=== PATIENT | male | born 1985 | race Caucasian/White ===

== ENCOUNTER 2023-12-07 16:33 | Inpatient (IN) ==
--- NOTE | 2023-12-07 17:15 | ED Triage Note ---
Date of Service December 07, 2023 Provider in Triage Author: Kevin Aguedlo History of Present Illness This patient was briefly evaluated while in triage. An abbreviated physical exam was performed. This patient is a 38-year-old Male who presents to the ED for evaluation of shortness of breath. The patient was recently on a hike, and found a tick on his left inner thigh. Since that time, the patient has had sensation of being dehydrated, and has had nausea. Patient denies any chest pain. Physical Exam CONSTITUTIONAL: Healthy and well nourished. HEENT: No scleral icterus or conjunctival injection. RESPIRATORY: Clear to auscultation bilaterally with no wheezing, crackles, rhonchi or stridor. CARDIOVASCULAR: Regular rate and rhythm with no murmurs, rubs or gallops. INTEGUMENTARY: Patient has a tick bite noted to the left medial thigh. HEMATOLOGIC: No ecchymosis or petechiae. PSYCHIATRIC: Positive affect. NEUROLOGIC: No focal neurologic deficits noted. Initial orders for labs and / or imaging were placed and patient was placed in the waiting area until a bed is available. Please see further documentation for the full ED course.
[2023-12-07] MEDS: SODIUM CHLORIDE 0.9% 1,000 ML IV ONE ×2 (17:49→19:25)
--- NOTE | 2023-12-07 17:53 | XRay Report ---
XR chest 1V portable CLINICAL HISTORY: Dyspnea. COMPARISON STUDY: No previous studies for comparison. FINDINGS: Lung volumes are normal. Lungs are clear. There is no pneumothorax or pleural effusion. Car diac size is normal. Mediastinal contours are normal. There is no evidence for pulmonary edema. IMPRESSION: No acute cardiopulmonary findings. ACT 112: Negative or not required by law. Electronically signed by: Jonathan Smith M.D. 12/07/2023 5:51 PM
[2023-12-07 18:17] LABS: Hematocrit (blood only) 53.9 % (42.0-52.0); Hemoglobin 19.2 g/dl (14.0-18.0); Mean Corpuscular Hemoglobin 29.4 pg (25.0-34.0); Mean Corpuscular Hgb Conc 35.6 g/dL (32.0-36.0); Mean Corpuscular Volume 82.5 fL (80.0-100.0); Mean Platelet Volume 9.5 fL (9.4-12.4); Platelet Count 371 K/uL (130-400); RDW Coefficient of Variation 13.5 % (11.5-14.5); RDW Standard Deviation 38.5 fL (36.4-46.3); Red Blood Count 6.53 M/uL (4.70-6.10); White Blood Count 13.83 K/ul (4.8-10.8)
[2023-12-07 18:22] LABS: Albumin Globulin Ratio 1.4 (0.9-2); Albumin Level 5.6 gm/dl (3.4-5.0); BUN Creatinine Ratio 29.4 (10-20); Bilirubin,Total 1.9 mg/dl (0.2-1.0); Calcium 11.6 mg/dl (8.6-10.3); Creatinine Clr Calc Pharmacy 53.6 ml/min; Est GFR (African American) 46.7 ml/min; Est GFR (Non-African American) 40.3 ml/min; Magnesium 2.7 mg/dl (1.7-2.4); Potassium 3.9 mmol/L (3.5-5.1); Total Protein 9.6 gm/dl (6.0-8.3)
[2023-12-07 18:27] LABS: Troponin I High Sensitivity 5.1 pg/ml (0-20)
[2023-12-07 18:31] LABS: Partial Thromboplastin Time 27 Seconds (21-31); Prothrombin Time 10.7 Seconds (9.0-12.0)
[2023-12-07 18:35] LABS: Basophils # (auto) 0.04 K/uL (0.00-0.20); Basophils % (auto) 0.3 %; Eosinophils # (auto) 0.02 K/uL (0.00-0.50); Eosinophils % (auto) 0.1 %; Immature Granulocytes # (auto) 0.06 K/uL (0.01-0.20); Immature Granulocytes % (auto) 0.4 %; Lymphocytes # (auto) 1.86 K/uL (1.20-3.40); Lymphocytes % (auto) 13.4 %; Monocytes # (auto) 1.11 K/uL (0.11-0.59); Neutrophils # (auto) 10.74 K/uL (1.40-6.50); Neutrophils % (auto) 77.8 %
[2023-12-07] MEDS: SODIUM CHLORIDE 0.9% 1,000 ML IV SCH ×2 (20:30→23:14)
[2023-12-07] MEDS ORDERED: ONDANSETRON INJ 2 MG/ML 2 ML VIAL IV PRN (22:00)
[2023-12-07] MEDS ORDERED: ALBUTEROL HFA 8 GM INHALER INH PRN (22:00)
[2023-12-07] MEDS ORDERED: NITROGLYCERIN SL 0.4 MG/TAB TAB SL PRN (22:00)
--- NOTE | 2023-12-07 22:29 | Emergency Department Note ---
History of Present Illness General Chief complaint: Shortness of Breath/Dyspnea Stated complaint: TROUBLE BREATHING, JAW PAIN, TICK BITE Time Seen by Provider: 12/07/23 17:39 History of Present Illness Provider complaint: Difficulty breathing nausea vomiting tick bite Onset (ago): day(s) 1 Maximum Pain Intensity: 2 38-year-old male presents emergency department for difficulty breathing nausea and vomiting. Patient states he has been hiking for the last 4 days. He has hiked more than 50 miles on foot on a hiking trail and noticed a tick bite on his left thigh today. He states that with 20 miles left on his hike, he started developing difficulty breathing nausea vomiting and myalgias feeling like his muscles were clear cramping. Patient states he might of drank some water that was contaminated with Giardia. No falls or traumas. Home Medications Medication Instructions Recorded Confirmed Type albuterol sulfate 90 mcg/actuation 1 - 2 inh inhalation DIRECTED 12/07/23 12/07/23 History aerosol inhaler PRN Shortness Of Breath Or Wheezing amino acids 1 ea PO DIRECTED PRN AFTER WORK 12/07/23 12/07/23 History OUTS creatine monohydrate 1 ea PO DIRECTED PRN PRIOR TO 12/07/23 12/07/23 History WORK OUTS multivitamin 1 tab PO DAILY 12/07/23 12/07/23 History Allergies Allergy/AdvReac Type Severity Reaction Status Date / Time No Known Allergies Allergy Verified 12/07/23 19:22 Past Med/Surg History Problem List (Updated 12/07/23 @ 22:37 by Shemar Goodwin MD) Acute dehydration (Acute) MAHNAZ (acute kidney injury) (Acute) Medical History No pertinent family history Asthma Surgical History No pertinent past surgical history Social History Smoking Status: Current every day smoker Preferred Language: Taiwanese Feels Safe at Home: Yes Physical Exam Vital Signs Vital Signs - 24 hr 12/07/23 17:12 12/07/23 17:46 12/07/23 17:47 Temperature 36.8 C Temperature Source Temporal Artery Scan Pulse Rate 111 H 91 H Pulse Rate [Apical] Respiratory Rate 22 Respiratory Effort / Characteristics Non-Labored Respiratory Depth Normal Respiratory Pattern Regular Blood Pressure 136/88 Blood Pressure [Right Arm] Blood Pressure Mean 104 Blood Pressure Mean [Right Arm] Blood Pressure Position Sitting Blood Pressure Position [Right Arm] Pulse Oximetry 98 100 Oxygen Delivery Method Room Air Non-rebreather Oxygen Flow Rate 15 Sepsis Recent Fever Within 48 Hours No Sepsis New/Unexplained Change in Mental Status No Sepsis Action Taken by Nursing Physician Notified 12/07/23 17:52 12/07/23 18:16 Temperature Temperature Source Pulse Rate 94 H Pulse Rate [Apical] 92 H Respiratory Rate 21 22 Respiratory Effort / Characteristics Spontaneous Respiratory Depth Respiratory Pattern Regular Blood Pressure Blood Pressure [Right Arm] 141/99 H Blood Pressure Mean Blood Pressure Mean [Right Arm] 113 Blood Pressure Position Blood Pressure Position [Right Arm] Semi-fowlers Pulse Oximetry 100 95 Oxygen Delivery Method Room Air Room Air Oxygen Flow Rate Sepsis Recent Fever Within 48 Hours Sepsis New/Unexplained Change in Mental Status Sepsis Action Taken by Nursing Physical Exam HENT: Exam performed. - Head: Normocephalic and atraumatic. - Right Ear: External ear normal. No mastoid erythema - Left Ear: External ear normal. No mastoid erythema - Mouth/Throat: The oropharynx is clear and moist. No trismus in the jaw. No dental abscesses or uvula swelling. No oropharyngeal exudate or tonsillar abscesses. EYES: Conjunctivae and EOM are normal. Pupils are equal, round, and reactive to light. Right eye exhibits no discharge. Left eye exhibits no discharge. No scleral icterus. NECK: Normal range of motion. Neck supple. No JVD present. No spinous process tenderness present. No tracheal deviation and normal range of motion present. CV: Tachycardic rate, regular rhythm, normal heart sounds and intact distal pulses. There is no peripheral edema. Palpable radial pulses bue. PULM/CHEST: Effort normal and breath sounds normal. No respiratory distress. No stridor. He has no wheezes. He has no rales. ABD: The abdomen is soft. He has no distension. No mass is present. There is no tenderness. There is no rebound, no guarding. MUSC/SKEL: Normal range of motion. There is no peripheral edema, tenderness or deformity. LYMPH: No cervical adenopathy. NEURO: He is alert and oriented to person, place, and time. He has normal strength. No cranial nerve deficit or sensory deficit. Coordination and gait normal. GCS eye subscore is 4. GCS verbal subscore is 5. GCS motor subscore is 6. Cerebellar tests wnl. SKIN: Lesion over the left upper thigh where tick bite was. No bull's-eye sign. Small erythematous nonblanching. Nikolsky negative. No vesicles. PSYCH: He has a normal mood and affect. Behavior is normal. Judgment and thought content normal. Course Course 1738: The patient was evaluated in room A1. A complete history and physical exam was performed Cardiac monitoring: An order was placed for continuous cardiac monitoring. The monitor shows a rate of 90 with sinus rhythm interpreted by wv 1915: Vital signs stable. Labs show white blood cell count of 13.83 hemoglobin 19.2 coagulation studies are within normal limits. BUN 59 creatinine 2.01. Magnesium 2.7 total bilirubin 1.9 AST 47 ALT 38 creatinine kinase 962. Anaplasmosis Lyme and babesiosis screen negative. Patient does be severely dehydrated and it could be that he was exposed to Giardia. Stool cultures are pending patient has not been able to give stool culture. Patient will be admitted for continuous IV hydration. [facility] hospitalist Dr. Hawk called and I discussed with him and he will evaluate the patient for admission. Administered Medications Discontinued Medications Sodium Chloride (Nss) 1,000 mls @ 999 mls/hr IV .Q1H1M ONE Stop: 12/07/23 18:47 Last Infusion: 12/07/23 19:24 Dose: Infused Documented By: Admin: 12/07/23 17:49 Dose: 999 mls/hr Documented By: IVONNE Sodium Chloride (Nss) 1,000 mls @ 999 mls/hr IV .Q1H1M ONE Stop: 12/07/23 19:26 Last Infusion: 12/07/23 21:34 Dose: Infused Documented By: Admin: 12/07/23 19:25 Dose: 999 mls/hr Documented By: CARITO Sodium Chloride (Nss) 1,000 mls @ 125 mls/hr IV .Q8H LOLLY Stop: 01/06/24 18:59 Last Admin: 12/07/23 20:30 Dose: 125 mls/hr Documented By: CARITO Medical Decision Making Laboratory Data Attestation: I reviewed the patient's lab results. 12/07/23 17:29 12/07/23 17:29 Lab Results 12/07/23 Range/Units 17:29 WBC 13.83 H (4.8-10.8) K/ul RBC 6.53 H (4.70-6.10) M/uL Hgb 19.2 H (14.0-18.0) g/dl Hct 53.9 H (42.0-52.0) % MCV 82.5 (80.0-100.0) fL MCH 29.4 (25.0-34.0) pg MCHC 35.6 (32.0-36.0) g/dL RDW Std Deviation 38.5 (36.4-46.3) fL RDW Coeff of Irina 13.5 (11.5-14.5) % Plt Count 371 (130-400) K/uL MPV 9.5 (9.4-12.4) fL Immature Gran % (Auto) 0.4 % Neut % (Auto) 77.8 % Lymph % (Auto) 13.4 % [place] % (Auto) 8.0 % Eos % (Auto) 0.1 % Baso % (Auto) 0.3 % Neut # (Auto) 10.74 H (1.40-6.50) K/uL Lymph # (Auto) 1.86 (1.20-3.40) K/uL [place] # (Auto) 1.11 H (0.11-0.59) K/uL Eos # (Auto) 0.02 (0.00-0.50) K/uL Baso # (Auto) 0.04 (0.00-0.20) K/uL Immature Gran # (Auto) 0.06 (0.01-0.20) K/uL PT 10.7 (9.0-12.0) Seconds INR 1.0 (0.9-1.1) APTT 27 (21-31) Seconds PTT Ratio 1.0 D-Dimer Cancelled Sodium 134 L (136-145) mmol/L Potassium 3.9 (3.5-5.1) mmol/L Chloride 96 L (98-107) mmol/L Carbon Dioxide 19 L (21-32) mmol/L Anion Gap 19 H (3-11) BUN 59 H (6-23) mg/dl Creatinine 2.01 H (0.6-1.4) mg/dl Est Cr Clr Drug Dosing 53.6 ml/min Est GFR ( Amer) 46.7 ml/min Est GFR (Non-Af Amer) 40.3 ml/min BUN/Creatinine Ratio 29.4 H (10-20) Glucose 153 H (70-99(Fasting)) mg/dl Calcium 11.6 H (8.6-10.3) mg/dl Magnesium 2.7 H (1.7-2.4) mg/dl Total Bilirubin 1.9 H (0.2-1.0) mg/dl AST 47 H (13-39) U/L ALT 38 (7-52) U/L Alkaline Phosphatase 91 (34-104) U/L Total Creatine Kinase 962 H (30-223) U/L Troponin I High Sens 5.1 (0-20) pg/ml Total Protein 9.6 H (6.0-8.3) gm/dl Albumin 5.6 H (3.4-5.0) gm/dl Globulin 4.0 (2.5-4.0) gm/dl Albumin/Globulin Ratio 1.4 (0.9-2) Anaplasma Smear See Comment Babesia Smear See Comment Lyme Disease Screen Negative (Negative) Imaging Data Attestation: I personally reviewed and interpreted this imaging study as follows: My Impression: Chest x-ray negative. Airway clear. No pneumothorax. No consolidation. No cardiomegaly or cephalization.. No free air under the diaphragm. No fractures of the skeletal structures. Radiologist's Impression: Chest X-Ray 12/07/23 17:15 XR chest 1V portable CLINICAL HISTORY: Dyspnea. COMPARISON STUDY: No previous studies for comparison. FINDINGS: Lung volumes are normal. Lungs are clear. There is no pneumothorax or pleural effusion. Cardiac size is normal. Mediastinal contours are normal. There is no evidence for pulmonary edema. IMPRESSION: No acute cardiopulmonary findings. ACT 112: Negative or not required by law. Electronically signed by: Jonathan Smith M.D. 12/07/2023 5:51 PM ECG Data Attestation: I personally reviewed and interpreted this ECG as follows: Rate (beats per minute): 98 Rhythm: + normal sinus ECG Intervals/blocks: + Normal QRS, + Normal MD and + Normal QT-c ECG ST segments: + Normal ST segments MDM Narrative 1739: The patient was evaluated in room A1. A complete history and physical exam was performed Cardiac monitoring: An order was placed for continuous cardiac monitoring. The monitor shows a rate of 90 with sinus rhythm interpreted by me 1915: Vital signs stable. Labs show white blood cell count of 13.83 hemoglobin 19.2 coagulation studies are within normal limits. BUN 59 creatinine 2.01. Magnesium 2.7 total bilirubin 1.9 AST 47 ALT 38 creatinine kinase 962. Anaplasmosis Lyme and babesiosis screen negative. Patient does be severely dehydrated and it could be that he was exposed to Giardia. Stool cultures are pending patient has not been able to give stool culture. Patient will be admitted for continuous IV hydration. [facility] hospitalist Dr. Hawk called and I discussed with him and he will evaluate the patient for admission. Impression & Plan MAHNAZ (acute kidney injury), Acute dehydration Discharge Plan Visit Data Chief Complaint: Shortness of Breath/Dyspnea Stated Complaint: TROUBLE BREATHING, JAW PAIN, TICK BITE ED Provider: Shemar Goodwin Discharge Problem: MAHNAZ (acute kidney injury), Acute dehydration Patient Disposition: Admitted As Inpatient Discharge Instructions Interventions: ED Discharge Assessment Last Done: 12/07/23 21:59
[2023-12-07] MEDS: ONDANSETRON INJ 2 MG/ML 2 ML VIAL IV STA (23:00)
[2023-12-07] MEDS: DOXYCYCLINE HYCLATE 100 MG in DEXTROSE 5% MINI-B 100 ML IV SCH (23:14)
[2023-12-07] MEDS: HEPARIN SOD 5,000 UNIT/0.5 ML VIAL SQ SCH (23:20)
--- NOTE | 2023-12-08 04:54 | History & Physical Report ---
Date of Service December 07, 2023 Assessment & Plan (1) Acute dehydration: Plan: 38-year-old male with past medical history significant for exercise-induced asthma presents with acute dehydration, MAHNAZ and rhabdomyolysis. Patient was hiking since last Tuesday morning. Hiked almost 50 miles. This is not the first time he was hiking. He was drinking water from [place] using water filter. Today afternoon he noticed a tick bite in his left thigh region. He pulled out the tick. He does not know how long it stayed there. But that is reason he called his [id number]-ms-fti. When his gzociuu-vp-pxa came to pick him up he started to feel nauseous and vomited several times. And was feeling very weak. And short of breath. and also some chest tightness. Initially he was having some difficulty opening the Jaw and chewing the food but now is feeling better. Currently after fluids in the ER is feeling better. He was feeling dizzy. Denies any headache. No blurred vision. No earache. No runny nose. No sore throat. No cough. Was feeling hot. Did not move his bowels since last 2 days. Urine is somewhat dark. No swelling in the legs. Currently hemodynamically stable. acute dehydration MAHNAZ rhabdomyolysis . Creatinine of 2, sodium of 134, total CK 962, hemoglobin 19.2 getting IV fluids normal saline at rate of 200 mill per hour avoid nephrotoxic agents follow repeat labs in a.m. sob and chest tightness ekg ok, two sets of troponin negative currently symptoms improved. elevated total bilirubin of 1.9 will follow repeat labs tick bite took to take out of his left eye yesterday. Does not know how long it stayed there. Ordered prophylactic IV doxycycline 200 mg one-time dose needs follow-up history of exercise-induced asthma Ventolin as needed DVT prophylaxis heparin subcu disposition med/telemetry full code Admission and Anticipated Discharge Date Admission Date: December 07, 2023 History of Present Illness Chief Complaint: Acute dehydration, MAHNAZ and rhabdomyolysis Primary Care Provider: [facility] 38-year-old male with past medical history significant for exercise-induced asthma presents with acute dehydration, MAHNAZ and rhabdomyolysis. Patient was hi [place] since last Tuesday morning. Hiked almost 50 miles. This is not the first time he was hiking. He was drinking water from [place] using water filter. Today afternoon he noticed a tick bite in his left thigh region. He pulled out the tick. He does not know how long it stayed there. But that is reason he called his [id number]-yg-[id number]. When his uedvoew-fe-oco came to pick him up he started to feel nauseous and vomited several times. And was feeling very weak. And short of breath. and also some chest tightness. Initially he was having some difficulty opening the Jaw and chewing the food but now is feeling better. Currently after fluids in the ER is feeling better. He was feeling dizzy. Denies any headache. No blurred vision. No earache. No runny nose. No sore throat. No cough. Was feeling hot. Did not move his bowels since last 2 days. Urine is somewhat dark. No swelling in the legs. Currently hemodynamically stable. Past medical history. As mentioned above past surgical history. Tonsillectomy adenoidectomy. Right forearm surgery. Social history. Smokes cigarettes on and off. Smokes cannabis daily. Alcohol occasional. No other drug use. Family history. Father had appendical cancer. Hypertension And diabetes in the family. Allergies Allergy/AdvReac Type Severity Reaction Status Date / Time No Known Allergies Allergy Verified 12/07/23 19:22 Home Medications Medication Instructions Recorded Confirmed Type albuterol sulfate 90 mcg/actuation 1 - 2 inh inhalation DIRECTED 12/07/23 12/07/23 History aerosol inhaler PRN Shortness Of Breath Or Wheezing amino acids 1 ea PO DIRECTED PRN AFTER WORK 12/07/23 12/07/23 History OUTS creatine monohydrate 1 ea PO DIRECTED PRN PRIOR TO 12/07/23 12/07/23 History WORK OUTS multivitamin 1 tab PO DAILY 12/07/23 12/07/23 History Past Med/Surg History Problem List (Updated 12/07/23 @ 22:37 by Shemar Goodwin MD) Acute dehydration (Acute) MAHNAZ (acute kidney injury) (Acute) Medical History No pertinent family history Asthma Surgical History No pertinent past surgical history Social History Smoking Status: Current every day smoker Preferred Language: Turkmen Communication Ability: Effective 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 ENT- oropharynx clear Neck- supple, no JVD. Lungs- clear to auscultation , no wheezing or crackles. Heart- regular rhythm; no murmur, no gallop. Abdomen- normal bowel sounds, soft, mild discomfort,, no distension. Extremities- no pretibial edema, no erythema seen Neuro- alert, oriented x 3; PERRL, no facial palsy; no dysarthria; moves extremities. Skin- small tick bite lesion on medial aspect of left thigh Results & Data Results & Data Vital Signs (Past 12 Hours) Vital Signs Temp Pulse Pulse Resp BP BP Pulse Ox 12/07/23 21:51 96 H 12/07/23 18:16 94 H 22 95 12/07/23 17:52 92 H 21 141/99 H 100 12/07/23 17:47 91 H 12/07/23 17:46 100 12/07/23 17:12 36.8 C 111 H 22 136/88 98 O2 Del Method O2 Flow Rate 12/07/23 21:51 12/07/23 18:16 Room Air 12/07/23 17:52 Room Air 12/07/23 17:47 12/07/23 17:46 Non-rebreather 15 12/07/23 17:12 Room Air Diagnostic Findings Laboratory Results WBC 13.83 K/ul (4.8-10.8) H 12/07/23 17:29 RBC 6.53 M/uL (4.70-6.10) H 12/07/23 17:29 Hgb 19.2 g/dl (14.0-18.0) H 12/07/23 17:29 Hct 53.9 % (42.0-52.0) H 12/07/23 17:29 MCV 82.5 fL (80.0-100.0) 12/07/23 17:29 MCH 29.4 pg (25.0-34.0) 12/07/23 17:29 MCHC 35.6 g/dL (32.0-36.0) 12/07/23 17:29 RDW Std Deviation 38.5 fL (36.4-46.3) 12/07/23: RDW Coeff of Irina 13.5 % (11.5-14.5) 12/07/23: Plt Count 371 K/uL (130-400) 12/07/23: MPV 9.5 fL (9.4-12.4) 12/07/23: Immature Gran % (Auto) 0.4 % 12/07/23 17: Neut % (Auto) 77.8 % 12/07/23: Lymph % (Auto) 13.4 % 12/07/23: [place] % (Auto) 8.0 % 12/07/23: Eos % (Auto) 0.1 % 12/07/23: Baso % (Auto) 0.3 % 12/07/23: Neut # (Auto) 10.74 K/uL (1.40-6.50) H 12/07/23: Lymph # (Auto) 1.86 K/uL (1.20-3.40) 12/07/23: [place] # (Auto) 1.11 K/uL (0.11-0.59) H 12/07/23: Eos # (Auto) 0.02 K/uL (0.00-0.50) 12/07/23: Baso # (Auto) 0.04 K/uL (0.00-0.20) 12/07/23: Immature Gran # (Auto) 0.06 K/uL (0.01-0.20) 12/07/23 17: PT 10.7 Seconds (9.0-12.0) 12/07/23: INR 1.0 (0.9-1.1) 12/07/23: APTT 27 Seconds (21-31) 12/07/23: PTT Ratio 1.0 12/07/23: D-Dimer Cancelled 12/07/23: Sodium 134 mmol/L (136-145) L 12/07/23: Potassium 3.9 mmol/L (3.5-5.1) 05/22/24 17:29 Chloride 96 mmol/L (98-107) L 12/07/23 17: Carbon Dioxide 19 mmol/L (21-32) L 12/07/23 17:29 Anion Gap 19 (3-11) H 12/07/23 17:29 BUN 59 mg/dl (6-23) H 12/07/23 17:29 Creatinine 2.01 mg/dl (0.6-1.4) H 12/07/23 17:29 Est Cr Clr Drug Dosing 53.6 ml/min 12/07/23 17:29 Est GFR ( Amer) 46.7 ml/min 12/07/23 17:29 Est GFR (Non-Af Amer) 40.3 ml/min 12/07/23 17:29 BUN/Creatinine Ratio 29.4 (10-20) H 12/07/23 17:29 Glucose 153 mg/dl (70-99(Fasting)) H 12/07/23 17:29 Calcium 11.6 mg/dl (8.6-10.3) H 12/07/23 17:29 Magnesium 2.7 mg/dl (1.7-2.4) H 12/07/23 17:29 Total Bilirubin 1.9 mg/dl (0.2-1.0) H 12/07/23 17:29 AST 47 U/L (13-39) H 12/07/23 17:29 ALT 38 U/L (7-52) 12/07/23 17:29 Alkaline Phosphatase 91 U/L (34-104) 12/07/23 17:29 Total Creatine Kinase 962 U/L (30-223) H 12/07/23 17:29 Troponin I High Sens 5.1 pg/ml (0-20) 12/07/23 17:29 Total Protein 9.6 gm/dl (6.0-8.3) H 12/07/23 17:29 Albumin 5.6 gm/dl (3.4-5.0) H 12/07/23 17:29 Globulin 4.0 gm/dl (2.5-4.0) 12/07/23 17:29 Albumin/Globulin Ratio 1.4 (0.9-2) 12/07/23 17:29 Anaplasma Smear See Comment 12/07/23 17:29 Babesia Smear See Comment 12/07/23 17:29 Lyme Disease Screen Negative (Negative) 12/07/23 17:29 Impressions Chest X-Ray 12/07/23 17:15 XR chest 1V portable CLINICAL HISTORY: Dyspnea. COMPARISON STUDY: No previous studies for comparison. FINDINGS: Lung volumes are normal. Lungs are clear. There is no pneumothorax or pleural effusion. Cardiac size is normal. Mediastinal contours are normal. There is no evidence for pulmonary edema. IMPRESSION: No acute cardiopulmonary findings. ACT 112: Negative or not required by law. Electronically signed by: Jonathan Smith M.D. 12/07/2023 5:51 PM ECG Additional Comments: ECG. Normal sinus rhythm with rate of 98. Possible left atrial enlargement. No acute ST changes seen. Code Status & VTE Plan VTE Prophylaxis Plan VTE Prophylaxis will be ordered: Yes
[2023-12-08 05:12] LABS: Basophils # (auto) 0.04 K/uL (0.00-0.20); Basophils % (auto) 0.4 %; Eosinophils % (auto) 1.1 %; Hematocrit (blood only) 46.9 % (42.0-52.0); Hemoglobin 16.7 g/dl (14.0-18.0); Immature Granulocytes # (auto) 0.03 K/uL (0.01-0.20); Immature Granulocytes % (auto) 0.3 %; Lymphocytes # (auto) 3.33 K/uL (1.20-3.40); Lymphocytes % (auto) 36.8 %; Mean Corpuscular Hemoglobin 29.7 pg (25.0-34.0); Mean Corpuscular Hgb Conc 35.6 g/dL (32.0-36.0); Mean Corpuscular Volume 83.5 fL (80.0-100.0); Mean Platelet Volume 9.3 fL (9.4-12.4); Monocytes # (auto) 1.02 K/uL (0.11-0.59); Monocytes % (auto) 11.3 %; Neutrophils # (auto) 4.54 K/uL (1.40-6.50); Neutrophils % (auto) 50.1 %; Platelet Count 313 K/uL (130-400); RDW Coefficient of Variation 13.2 % (11.5-14.5); RDW Standard Deviation 39.8 fL (36.4-46.3); Red Blood Count 5.62 M/uL (4.70-6.10); White Blood Count 9.06 K/ul (4.8-10.8)
[2023-12-08 05:29] LABS: Albumin Level 4.4 gm/dl (3.4-5.0); BUN Creatinine Ratio 39.4 (10-20); Bilirubin Direct 0.2 mg/dl (0-0.2); Bilirubin,Total 1.3 mg/dl (0.2-1.0); Calcium 9.2 mg/dl (8.6-10.3); Creatinine Clr Calc Pharmacy 103.6 ml/min; Est GFR (African American) 103.6 ml/min; Est GFR (Non-African American) 89.4 ml/min; Magnesium 2.4 mg/dl (1.7-2.4); Potassium 3.5 mmol/L (3.5-5.1); Total Protein 7.3 gm/dl (6.0-8.3)
[2023-12-08 05:44] LABS: Troponin I High Sensitivity 5.1 pg/ml (0-20)
[2023-12-08] MEDS: MULTIVITAMIN TAB PO SCH (09:56)
--- NOTE | 2023-12-08 15:17 | Electrocardiogram Report ---
Test Reason : Blood Pressure : / mmHG Vent. Rate : 098 BPM Atrial Rate : 098 BPM P-R Int : 118 ms QRS Dur : 088 ms QT Int : 356 ms P-R-T Axes : 080 077 032 degrees QTc Int : 454 ms Normal sinus rhythm Possible Left atrial enlargement Nonspecific T wave abnormality Abnormal ECG No previous ECGs available Confirmed by Pierce Rangel ([id number]) on 12/08/2023 3:17:38 PM Referred By: REFERRED SELF Confirmed By:Pierce Rangel
--- NOTE | 2023-12-08 17:05 | Hospitalist Progress Note ---
Date of Service December 08, 2023 Assessment & Plan (1) Acute dehydration: Plan: 38-year-old male with past medical history significant for exercise-induced asthma presents with acute dehydration, MAHNAZ and rhabdomyolysis. Patient was hiking since last Tuesday morning. Hiked almost 50 miles. This is not the first time he was hiking. He was drinking water from [place] using water filter. Today afternoon he noticed a tick bite in his left thigh region. He pulled out the tick. He does not know how long it stayed there. But that is reason he called his [id number]. When his jynnmkc-mb-uzs came to pick him up he started to feel nauseous and vomited several times. And was feeling very weak. And short of breath. and also some chest tightness. Initially he was having some difficulty opening the Jaw and chewing the food but now is feeling better. Currently after fluids in the ER is feeling better. He was feeling dizzy. Denies any headache. No blurred vision. No earache. No runny nose. No sore throat. No cough. Was feeling hot. Did not move his bowels since last 2 days. Urine is somewhat dark. No swelling in the legs. Currently hemodynamically stable. Acute dehydration MAHNAZ Rhabdomyolysis Creatinine of 2, sodium of 134, total CK 962, hemoglobin 19.2 Has been receiving intravenous fluid to 100 mL an hour and shows improvement of kidney function Will continue IV fluid with decreased rate and advised to drink more fluid We will repeat blood counts tomorrow and likely discharge tomorrow Elevated total bilirubin of 1.9 Will follow repeat labs Tick bite Took to take out of his left eye yesterday. Does not know how long it stayed there. Ordered prophylactic IV doxycycline 200 mg one-time dose Needs follow-up History of exercise-induced asthma Ventolin as needed DVT prophylaxis heparin subcu disposition med/telemetry full code Admission and Anticipated Discharge Date Admission Date: December 07, 2023 Subjective 12/08/2023 The patient was seen and examined in medical telemetry unit He has been feeling much better Denies any symptoms Review of Systems Review of Systems: All systems reviewed and are unremarkable except as noted below Physical Exam Physical Exam: Lying in bed comfortably Constitutional: well developed, well nourished and average body habitus; not ill appearing ENMT: external ear and nose normal, oropharynx normal Neck: trachea midline, no thyromegaly Respiratory: normal respiratory effort, lungs clear to auscultation Cardiovascular: Rate/Rhythm: regular rate and regular rhythm; not tachycardic Heart Sounds: normal S1 and normal S2; no murmur Extremities: no edema Gastrointestinal (Abdomen): Inspection/Auscultation: normal bowel sounds; abdomen not distended Percussion/Palpation: abdomen soft; abdomen nontender Musculoskeletal: No acute arthritis involving any of the joints Neurologic: normal touch/pain/proprioception and moves all extremities; no focal motor deficits Psychiatric: A+Ox3, euthymic affect Lymphatic: no cervical or axillary lymphadenopathy Results & Data Results & Data Vital Signs (Past 12 Hours) Vital Signs Temp Pulse Resp BP Pulse Ox O2 Del Method O2 Del Method 12/08/23 16:51 36.6 C 81 18 162/106 H 99 Room Air 12/08/23 05:04 20 115/71 97 Room Air 12/08/23 05:03 Room Air Laboratory Results Short CBC 12/07/23 12/08/23 Range/Units 17:29 03:57 WBC 13.83 H 9.06 (4.8-10.8) K/ul Hgb 19.2 H 16.7 (14.0-18.0) g/dl Hct 53.9 H 46.9 (42.0-52.0) % Plt Count 371 313 (130-400) K/uL BMP 12/07/23 12/08/23 17:29 03:57 Sodium 134 L 134 L Potassium 3.9 3.5 Chloride 96 L 103 Carbon Dioxide 19 L 22 BUN 59 H 41 H Creatinine 2.01 H 1.04 D Glucose 153 H 115 H Calcium 11.6 H 9.2 D Cardiac Enzymes 12/07/23 12/08/23 Range/Units 17:29 03:57 Total Creatine Kinase 962 H 641 H (30-223) U/L Liver Function 12/07/23 12/08/23 Range/Units 17:29 03:57 Total Bilirubin 1.9 H 1.3 H (0.2-1.0) mg/dl Direct Bilirubin 0.2 (0-0.2) mg/dl AST 47 H 32 (13-39) U/L ALT 38 26 (7-52) U/L Alkaline Phosphatase 91 68 (34-104) U/L Albumin 5.6 H 4.4 (3.4-5.0) gm/dl Medications Administered Current Inpatient Medications Albuterol (Albuterol Hfa 8 Gm Inhaler) 2 puffs INH Q4H PRN PRN Reason: Shortness Of Breath Or Wheezin Stop: 01/06/24 21:59 Heparin Sodium (Porcine) (Heparin Sod 5,000 Unit/0.5 Ml Vial) 5,000 units SQ Q12 LOLLY Stop: 01/06/24 21:59 Last Admin: 12/08/23 09:56 Dose: 5,000 units Sodium Chloride (Nss) 1,000 mls @ 200 mls/hr IV .Q5H LOLLY Stop: 01/06/24 21:59 Last Admin: 12/08/23 12:49 Dose: 200 mls/hr Multivitamins (Multivitamin Tab) 1 tab PO DAILY [facility] Stop: 01/07/24 08:59 Last Admin: 12/08/23 09:56 Dose: 1 tab Nitroglycerin (Nitroglycerin Sl 0.4 Mg/Tab Tab) 0.4 mg SL Q5M PRN PRN Reason: Chest Pain Stop: 01/06/24 21:59 Ondansetron HCl (Ondansetron Inj 2 Mg/Ml 2 Ml Vial) 4 mg IV Q6H PRN PRN Reason: Nausea Stop: 01/06/24 21:59
[2023-12-08 23:27] LABS: Appearance Urine Clear (Clear); Bilirubin Urine Negative (Negative); Blood Urine Negative (Negative); Color Urine Orange; Glucose Urine UA Negative (Negative); Ketones Urine Negative (Negative); Leukocyte Esterase Urine Negative (Negative); Nitrite Urine Negative (Negative); Protein Urine Negative (Negative); Specific Gravity Urine 1.012 (1.000-1.030); Urobilinogen Urine Negative (Negative); pH Urine 6.5 (4.5-7.5)
[2023-12-09 07:42] LABS: Albumin Globulin Ratio 1.5 (0.9-2); BUN Creatinine Ratio 24.1 (10-20); Bilirubin,Total 1.2 mg/dl (0.2-1.0); Creatinine Clr Calc Pharmacy 136.4 ml/min; Est GFR (African American) 130.2 ml/min; Est GFR (Non-African American) 112.3 ml/min; Globulin 2.7 gm/dl (2.5-4.0); Magnesium 2.1 mg/dl (1.7-2.4); Phosphorus 2.3 mg/dl (2.5-4.9); Potassium 4.2 mmol/L (3.5-5.1); Total Protein 6.7 gm/dl (6.0-8.3)
--- NOTE | 2023-12-09 12:08 | Hospitalist Progress Note ---
Date of Service December 09, 2023 Assessment & Plan (1) Acute dehydration: Plan: 38-year-old male with past medical history significant for exercise-induced asthma presents with acute dehydration, MAHNAZ and rhabdomyolysis. Patient was hiking since last Tuesday morning. Hiked almost 50 miles. This is not the first time he was hiking. He was drinking water from [place] using water filter. Today afternoon he noticed a tick bite in his left thigh region. He pulled out the tick. He does not know how long it stayed there. But that is reason he called his [id number]-[id number]. When his vxaexog-at-xcg came to pick him up he started to feel nauseous and vomited several times. And was feeling very weak. And short of breath. and also some chest tightness. Initially he was having some difficulty opening the Jaw and chewing the food but now is feeling better. Currently after fluids in the ER is feeling better. He was feeling dizzy. Denies any headache. No blurred vision. No earache. No runny nose. No sore throat. No cough. Was feeling hot. Did not move his bowels since last 2 days. Urine is somewhat dark. No swelling in the legs. Currently hemodynamically stable. Acute dehydration MAHNAZ Rhabdomyolysis Creatinine of 2, sodium of 134, total CK 962, hemoglobin 19.2 Has been receiving intravenous fluid to 100 mL an hour and shows improvement of kidney function Will continue IV fluid with decreased rate and advised to drink more fluid We will repeat blood counts tomorrow and likely discharge tomorrow Kidney function has been normalized CK level has been less than 300 Denies any other significant symptoms and have been ambulating in the hallway He will be discharged this afternoon Bowel is not moved for the last 2 or 3 days Denies any abdominal symptoms Will give MiraLAX Elevated total bilirubin of 1.9 Will follow repeat labs-unremarkable Tick bite Took to take out of his left eye yesterday. Does not know how long it stayed there. Ordered prophylactic IV doxycycline 200 mg one-time dose Needs follow-up Lyme screen is negative, Babesia and Anaplasma-negative but definitive test are pending Will continue with doxycycline for a total of 10 days History of exercise-induced asthma Ventolin as needed DVT prophylaxis heparin subcu disposition med/telemetry full code Admission and Anticipated Discharge Date Admission Date: December 07, 2023 Subjective 12/08/2023 The patient was seen and examined in medical telemetry unit He has been feeling much better Denies any symptoms 12/09/2023 The patient was seen and examined in medical telemetry He has been complaining of constipation with some back pain without nausea or vomiting He has been ambulating in the hallway without any difficulty Denies any other significant symptoms and will be discharged home this afternoon Review of Systems Review of Systems: All systems reviewed and are unremarkable except as noted below Physical Exam Physical Exam: Lying in bed comfortably Constitutional: well developed, well nourished and average body habitus; not ill appearing ENMT: external ear and nose normal, oropharynx normal Neck: trachea midline, no thyromegaly Respiratory: normal respiratory effort, lungs clear to auscultation Cardiovascular: Rate/Rhythm: regular rate and regular rhythm; not tachycardic Heart Sounds: normal S1 and normal S2; no murmur Extremities: no edema Gastrointestinal (Abdomen): Inspection/Auscultation: normal bowel sounds; abdomen not distended Percussion/Palpation: abdomen soft; abdomen nontender Musculoskeletal: No acute arthritis involving any of the joints Neurologic: normal touch/pain/proprioception and moves all extremities; no focal motor deficits Psychiatric: A+Ox3, euthymic affect Lymphatic: no cervical or axillary lymphadenopathy Results & Data Results & Data Vital Signs (Past 12 Hours) Vital Signs Temp Pulse Pulse Resp BP BP Pulse Ox 12/09/23 11:24 37.2 C 56 L 18 131/74 98 12/09/23 09:01 65 12/09/23 09:01 12/09/23 07:18 36.7 C 63 16 135/79 97 12/09/23 04:16 36.8 C 79 20 148/79 H 96 O2 Del Method O2 Del Method 12/09/23 11:24 Room Air 12/09/23 09:01 12/09/23 09:01 Room Air 12/09/23 07:18 Room Air 12/09/23 04:16 Room Air Laboratory Results BMP 12/09/23 07:01 Sodium 137 Potassium 4.2 Chloride 107 Carbon Dioxide 25 BUN 19 D Creatinine 0.79 Glucose 116 H Calcium 9.0 Cardiac Enzymes 12/09/23 Range/Units 07:01 Total Creatine Kinase 298 H (30-223) U/L Liver Function 12/09/23 Range/Units 07:01 Total Bilirubin 1.2 H (0.2-1.0) mg/dl AST 27 (13-39) U/L ALT 25 (7-52) U/L Alkaline Phosphatase 64 (34-104) U/L Albumin 4.0 (3.4-5.0) gm/dl Urine 12/08/23 Range/Units 22:59 Urine Color [place] Urine Appearance Clear (Clear) Urine pH 6.5 (4.5-7.5) Ur Specific [place] 1.012 (1.000-1.030) Urine Protein Negative (Negative) Urine Glucose (UA) Negative (Negative) Medications Administered Current Inpatient Medications Albuterol (Albuterol Hfa 8 Gm Inhaler) 2 puffs INH Q4H PRN PRN Reason: Shortness Of Breath Or Wheezin Stop: 01/06/24 21:59 Heparin Sodium (Porcine) (Heparin Sod 5,000 Unit/0.5 Ml Vial) 5,000 units SQ Q12 LOLLY Stop: 01/06/24 21:59 Last Admin: 12/09/23 07:53 Dose: 5,000 units Multivitamins (Multivitamin Tab) 1 tab PO DAILY [facility] Stop: 01/07/24 08:59 Last Admin: 12/09/23 07:53 Dose: 1 tab Nitroglycerin (Nitroglycerin Sl 0.4 Mg/Tab Tab) 0.4 mg SL Q5M PRN PRN Reason: Chest Pain Stop: 01/06/24 21:59 Ondansetron HCl (Ondansetron Inj 2 Mg/Ml 2 Ml Vial) 4 mg IV Q6H PRN PRN Reason: Nausea Stop: 01/06/24 21:59
--- NOTE | 2023-12-09 13:07 | Electrocardiogram Report ---
Test Reason : Blood Pressure : / mmHG Vent. Rate : 059 BPM Atrial Rate : 059 BPM P-R Int : 112 ms QRS Dur : 096 ms QT Int : 426 ms P-R-T Axes : 017 058 030 degrees QTc Int : 421 ms Sinus bradycardia Nonspecific ST abnormality Abnormal ECG When compared with ECG of 07-DEC-2023 17:21, Vent. rate has decreased BY 39 BPM Nonspecific T wave abnormality, improved in Inferior leads Confirmed by Pierce Rangel ([id number]) on 12/09/2023 1:07:10 PM Referred By: REFERRED SELF Confirmed By:Pierce Rangel
--- NOTE | 2023-12-10 08:29 | Discharge Summary ---
Date of Service December 10, 2023 Admission HPI Per Admitting Provider 38-year-old male with past medical history significant for exercise-induced asthma presents with acute dehydration, MAHNAZ and rhabdomyolysis. Patient was hiking since last Tuesday morning. Hiked almost 50 miles. This is not the first time he was hiking. He was drinking water from [place] using water filter. Today afternoon he noticed a tick bite in his left thigh region. He pulled out the tick. He does not know how long it stayed there. But that is reason he called his [id number]. When his npqyinu-qb-gkd came to pick him up he started to feel nauseous and vomited several times. And was feeling very weak. And short of breath. and also some chest tightness. Initially he was having some difficulty opening the Jaw and chewing the food but now is feeling better. Currently after fluids in the ER is feeling better. He was feeling dizzy. Denies any headache. No blurred vision. No earache. No runny nose. No sore throat. No cough. Was feeling hot. Did not move his bowels since last 2 days. Urine is somewhat dark. No swelling in the legs. Currently hemodynamically stable. Past medical history. As mentioned above past surgical history. Tonsillectomy adenoidectomy. Right forearm surgery. Social history. Smokes cigarettes on and off. Smokes cannabis daily. Alcohol occasional. No other drug use. Family history. Father had appendical cancer. Hypertension And diabetes in the family. Admission Exam Per Admitting Provider Physical Exam: General- Not in distress Head- atraumatic Eyes- PERRL. ENT- oropharynx clear Neck- supple, no JVD. Lungs- clear to auscultation , no wheezing or crackles. Heart- regular rhythm; no murmur, no gallop. Abdomen- normal bowel sounds, soft, mild discomfort,, no distension. Extremities- no pretibial edema, no erythema seen Neuro- alert, oriented x 3; PERRL, no facial palsy; no dysarthria; moves extremities. Skin- small tick bite lesion on medial aspect of left thigh Principal Diagnosis Acute dehydration, MAHNAZ-resolved, rhabdomyolysis Discharge Exam Lying in bed comfortably Constitutional well developed, well nourished and average body habitus; not ill appearing ENMT external ear and nose normal, oropharynx normal Neck trachea midline, no thyromegaly Respiratory normal respiratory effort, lungs clear to auscultation Cardiovascular Rate/Rhythm: regular rate and regular rhythm; not tachycardic Heart Sounds: normal S1 and normal S2; no murmur Extremities: no edema Gastrointestinal (Abdomen) Inspection/Auscultation: normal bowel sounds; abdomen not distended Percussion/Palpation: abdomen soft; abdomen nontender Neurologic normal touch/pain/proprioception and moves all extremities; no focal motor deficits Psychiatric A+Ox3, euthymic affect Lymphatic no cervical or axillary lymphadenopathy Discharge Data Allergies Allergy/AdvReac Type Severity Reaction Status Date / Time No Known Allergies Allergy Verified 12/07/23 19:22 Consultations 12/07/23 18:52 ED Decision to Admit Stat Hospital Course (1) Acute dehydration: 38-year-old male with past medical history significant for exercise-induced asthma presents with acute dehydration, MAHNAZ and rhabdomyolysis. Patient was hiking since last Tuesday morning. Hiked almost 50 miles. This is not the first time he was hiking. He was drinking water from [place] using water filter. Today afternoon he noticed a tick bite in his left thigh region. He pulled out the tick. He does not know how long it stayed there. But that is reason he called his [id number]. When his gmbarup-nm-kjp came to pick him up he started to feel nauseous and vomited several times. And was feeling very weak. And short of breath. and also some chest tightness. Initially he was having some difficulty opening the Jaw and chewing the food but now is feeling better. Currently after fluids in the ER is feeling better. He was feeling dizzy. Denies any headache. No blurred vision. No earache. No runny nose. No sore throat. No cough. Was feeling hot. Did not move his bowels since last 2 days. Urine is somewhat dark. No swelling in the legs. Currently hemodynamically stable. Acute dehydration MAHNAZ Rhabdomyolysis Creatinine of 2, sodium of 134, total CK 962, hemoglobin 19.2 Has been receiving intravenous fluid to 100 mL an hour and shows improvement of kidney function Will continue IV fluid with decreased rate and advised to drink more fluid We will repeat blood counts tomorrow and likely discharge tomorrow Kidney function has been normalized CK level has been less than 300 Denies any other significant symptoms and have been ambulating in the hallway He will be discharged this afternoon Bowel is not moved for the last 2 or 3 days Denies any abdominal symptoms Will give MiraLAX Elevated total bilirubin of 1.9 Will follow repeat labs-unremarkable Tick bite Took to take out of his left eye yesterday. Does not know how long it stayed there. Ordered prophylactic IV doxycycline 200 mg one-time dose Needs follow-up Lyme screen is negative, Babesia and Anaplasma-negative but definitive test are pending Will continue with doxycycline for a total of 10 days History of exercise-induced asthma Ventolin as needed DVT prophylaxis heparin subcu disposition med/telemetry full code Total Time Total Time Spent Total Time Spent (In Minutes): 35 minutes Discharge Plan Discharge Items Patient Disposition: Home - Self-Care Reason For Visit: MAHNAZ, RHABDOMYOLYSIS Discharge Diagnosis: Acute dehydration, MAHNAZ-resolved, rhabdomyolysis Condition on Discharge: Good Activity: Resume your previous activity Non-emergency contact: Primary Care Provider Call non-emergency contact if: you have any medication questions and your symptoms worsen Follow-up/Referrals: [facility] [Primary Care Provider] - (Please make an appointment with your PCP within 7 days) Diet: Regular Addtl Attending Provider Instructions: Please take precautions to avoid falls Take your medications as advised Received prophylactic dose of Doxy with tick bite without positive titer Try to drink more fluid Pending Studies at Discharge: Yes Studies:: Serology Stand-Alone Forms: [employer], Smoking Cessation Medications and DC Order Prescriptions: Continued multivitamin Tablet 1 tab PO DAILY amino acids Powder 1 ea PO DIRECTED PRN (Reason: AFTER WORK OUTS) albuterol sulfate 90 mcg/actuation Hfa Aerosol Inhaler 1 - 2 inh INHALATION DIRECTED PRN (Reason: Shortness Of Breath Or Wheezing) creatine monohydrate Powder 1 ea PO DIRECTED PRN (Reason: PRIOR TO WORK OUTS) Discharge Orders: Discharge Order (Routine); Ordered 12/09/23 Ordered By: Ramez Miguel Admission Data Admit Date/Time: 12/07/23 19:54 Attending Provider: Ramez Miguel Admit Provider: Aleksey Hawk Primary Care Provider: [facility] Other Providers: Nakul Deluna Other Interventions: Discharge Summary Assessment (RN) Last Done: 12/09/23 13:55
== END 2023-12-09 13:56 | disposition home or self-care (01) | DRG 683 ==
LOC: ED 16:33 → EDINP 19:54 → 2W 21:59